=== PATIENT | male | born 1940 | race Caucasian/White ===

== ENCOUNTER → 2016-12-26 | Outpatient (CLI) | payer OTHER | LOC: LAB 09:51 | PROVIDERS: ATTEND Urology | DX: C61 Malignant neoplasm of prostate (principal) | CPT/HCPCS: 36415; 84153 ==

== ENCOUNTER 2017-11-19 13:54 | Inpatient (IN) ==
[~2017-11-19 13:54] MED LIST: BACITRACIN 50,000 UNIT VIAL IRRIG ONE; BUPivacaine Inj 0.5% PF (5mg/ml) 10ml vial ONE; LIDOCAINE W/ SODIUM BICARB 0.5 ML SYR SUBD ONE; Sodium Chloride 0.9% vial 20 ML ONE
[2017-11-19] MEDS: Lactated Ringers 1,000 ML PRIMARY IV SCH ×3 (14:33→20:03)
[2017-11-19] MEDS ORDERED: LIDOCAINE 2%/ EPI 1:200,000 - 20 ML VIAL ONE (14:55)
[2017-11-19] MEDS ORDERED: MEPIVACAINE HCL/PF 20 MG/1 ML ONE (14:55)
[2017-11-19] MEDS ORDERED: MIDAZOLAM 5 MG/1 ML ONE (14:55)
[2017-11-19] MEDS ORDERED: fentaNYL Inj 100 MCG/2 ML VIAL ONE ×2 (14:55→15:38)
[2017-11-19] MEDS ORDERED: DEXAMETHASONE PF 10 MG/1 ML VIAL ONE (14:58)
[2017-11-19] MEDS ORDERED: PROPOFOL 10 MG/1 ML (200 MG/20 ML) VIAL IV ONE (15:31)
[2017-11-19] MEDS ORDERED: Sodium Chloride 0.9% 100 ML IV ONE (15:38)
[2017-11-19] MEDS ORDERED: KETAMINE 100 MG/1 ML - 5 ML ONE (15:38)
[2017-11-19] MEDS ORDERED: ERTAPENEM 1 GM VIAL ONE (15:38)
[2017-11-19] MEDS ORDERED: LIDOCAINE MPF 2% - 5 ML (20 MG/1 ML) ONE (15:54)
[2017-11-19] MEDS ORDERED: ROCURONIUM 10 MG/1 ML - 5 ML VIAL IVP ONE (15:56)
[2017-11-19] MEDS ORDERED: ePHEDrine Inj 50 MG/ML AMP ONE (16:19)
[2017-11-19] MEDS ORDERED: Ertapenem Inj 1 GM in Sodium Chloride 0.9% 100 ML IV SCH (16:45)
--- NOTE | 2017-11-19 17:09 | CRNA.PROGR ---
Anesthesia Time - - Start date: 11/19/17 End date: 11/19/17 - Procedure/Recovery Time Anesthesia : Time In: 15:53 Anesthesia : Time Out: 17:05 Anesthesia : Total Time: 72 - Total Anesthesia Time Total Anesthesia Time (minutes): 72 - Other Weight: 99.79 kg Height: 5 ft 6 in Body Mass Index (BMI): 35.5 Physical Status: P3 Anesthesia Type: General Anesthesia : ET
--- NOTE | 2017-11-19 17:11 | ORTHO.OP ---
- - -: See Dictated Operative Report Procedure Codes - Upper Extremity Procedures Primary Wrist/Hand/Elbow Procedure Code: Other CPT Code(s) (cpt 80447)
[2017-11-19] MEDS ORDERED: ONDANSETRON 4 MG/2 ML VIAL IVP PRN (17:43)
[2017-11-19] MEDS ORDERED: HYDROcodone-APAP 7.5 MG-325 MG TABLET PO PRN (17:43)
[2017-11-19] MEDS ORDERED: HYDROmorphone 2 MG/1 ML IVP PRN (17:43)
--- NOTE | 2017-11-19 18:23 | PDOC ---
HPI - History of Present Illness Date of Service: 11/19/17 Time of Service: 18:22 Chief Complaint: Left elbow swelling History of Present Illness: Very pleasant 77-year-old male with hypertension, possible thyroid problems as he is on an [id number] thyroid product, who developed an olecranon bursitis earlier this year in September. He had it aspirated and then steroids placed and it around October 13 and had no further problems. Yesterday, he presented to the clinic with swelling and redness in his left elbow and was sent over to the orthopedic clinic for evaluation. He had aspiration and that was sent for Gram stain and gram-negative rods grew out. He had a washout of his olecranon A, along with a drain left in place. Gram stain initially now is coming back as rare gram-positive cocci. I was asked to see the patient regarding antibiotics. Prior to surgery we knew that a gram negative jordyn was on Gram stain. I advised Invanz and the dose was given around 5:00 today. This is in the afternoon. Reviewing the culture results to date, there is no growth. I also spoke with infectious disease, and they recommended consideration of narrowing antibiotics to cover staph or strep organisms if there is no growth on the gram-negative jordyn portion over the next 24 hours or so. The patient has not had any fevers, chills, nausea, vomiting, or other systemic infectious symptoms. He states he did not even have pain in the elbow. His is present at bedside and we discussed the patient's situation at length, including options for treatment that may include IV antibiotics for some portion of time. Past Medical History Medical History: 1. Hypertension. 2. Left olecranon bursitis. 3. History of atrial fibrillation. 4. Coronary artery disease status post CABG. 5. Prostate cancer status post prostatectomy. 6. Hypercholesterolemia Surgical History: Status post laser cataract surgery (Acute). Status post coronary artery bypass graft (Acute). History of esophagogastroduodenoscopy. History of eye surgery. Status post prostatectomy. Status post tonsillectomy. History of blepharoplasty Pertinent Family History: Father of a heart attack. Mother of a cerebral hemorrhage Past Social History: Quit smoking in the past. He is for 59 years. Has 3 children described as healthy. Drinks a beer a night. Tobacco Use: Former Smoker In the Past 12 Months, Have Used or Abuse Any of the Following Substance: None Alcohol Use: Occasionally Medication / Allergies Home Medications: Home Medications 3 Medication Instructions Recorded Confirmed Type Aspirin [Aspir-Low] 81 mg ORAL QD tab 09/18/10 11/19/17 History [place]-3 Fatty Acids/Fish Oil [Fish 1 ea PO QAM 09/18/10 11/19/17 History Oil Softgel] Simvastatin 40 mg PO QHS #90 tab 07/07/13 11/19/17 History Thyroid Otc 200 mg PO three times a week 07/07/13 11/19/17 Clinic Cyanocobalamin/Folic Acid [Vitamin 1 tab PO QD #30 tab 03/30/15 11/19/17 History L93-Vnomy Acid Tablet] ascorbate calcium 500 mg capsule 1,000 mg PO QDAY 03/31/17 11/19/17 History metoprolol tartrate 25 mg tablet 25 mg PO BID #180 tab 03/31/17 11/19/17 History Allergies/Adverse Reactions: Allergies 3 Allergy/AdvReac Type Severity Reaction Status Date / Time adhesive tape Allergy RASH Verified 11/19/17 17:58 Review of Systems - Respiratory Respiratory: REPORTS: Negative System Review - Cardiovascular Cardiovascular: REPORTS: Negative System Review - Gastrointestinal Gastrointestinal / Abdominal: REPORTS: Negative System Review - Genitourinary Genitourinary: REPORTS: Other (History of prostate cancer status post prostatectomy) - Musculoskeletal Musculoskeletal: REPORTS: See HPI - Neurological Neurologic: REPORTS: Negative System Review Exam - Vitals Vital Signs: Vital Signs Temperature 97.8 F Temperature Source Oral Pulse Rate [Pulse Oximeter] 79 Pulse Rate 80 Respiratory Rate 16 Blood Pressure [Right Thigh] 135/77 Blood Pressure 132/72 Pulse Ox 96 Oxygen Flow Rate 2 Oxygen Delivery Method Nasal Cannula Height 5 ft 6 in Weight 220 lb - General General Appearance: No Acute Distress, Cooperative - Head Head Exam: Normal Inspection, Normocephalic, Atraumatic - Eye Eye Exam: POSITIVE: No Scleral Icterus - ENT ENT Exam: POSITIVE: Mucous Membranes Moist - Neck Neck Exam: Normal Inspection, No Tenderness, No Lymphadenopathy, No Thyromegaly - Respiratory Respiratory Exam: POSITIVE: Clear to Auscultation - Bilaterally, Breathing Non Labored - Cardiovascular Cardiovascular Exam: POSITIVE: RRR, No Murmur, No Clicks, No Gallops, No Rubs, No JVD - GI/Abdominal GI/Abdominal Exam: POSITIVE: Normal Bowel Sounds, Non Tender, Non Distended, Soft - Rectal Rectal Exam: POSITIVE: Deferred - External Exam: POSITIVE: Deferred Exam: POSITIVE: Deferred - Extremities Extremities Exam: POSITIVE: No Clubbing Present, No Edema Present, No Cyanosis Present Additional Extremities Exam Details: On the left upper extremity, the elbow is dressed, dressing is clean, dry, intact and there is a drain in place. - Neurological Neurological Exam: POSITIVE: Alert, Oriented x 3, No Facial Droop, Speech Intact / Clear Additional Neurological Exam Details: I did not do formal muscle strength testing given the olecranon bursitis on the left side. - Central Line Examination Central Line Present on Admission: No Results - Labs Additional Lab Results: 10/05/11 11/18/17 11:00 09:31 WBC 6.00 RBC 4.55 L Hgb 14.7 RDW 12.1 Hct 44.2 MCV 97.1 H MCH 32.3 H MCHC 33.3 RDW Std Deviation 45.4 RDW Coeff of Kami 13.1 Plt Count 198 MPV 10.5 Immature Gran % (Auto) 0.2 Neut % (Auto) 63.4 Lymph % (Auto) 23.8 [place] % (Auto) 11.8 Eos % (Auto) 0.3 Baso % (Auto) 0.5 Immature Gran # (Auto) 0.01 Neut # (Auto) 3.80 Lymph # (Auto) 1.43 [place] # (Auto) 0.71 Eos # (Auto) 0.02 Baso # (Auto) 0.03 Assessment and Plan - Patient Problems (1) Olecranon bursitis, left elbow Current Visit: Yes Status: Acute Code(s): M70.22 - Olecranon bursitis, left elbow (2) History of prostate cancer Current Visit: Yes Status: Acute Code(s): Z85.46 - Personal history of malignant neoplasm of prostate (3) Hypercholesterolemia Current Visit: Yes Status: Acute Code(s): E78.00 - Pure hypercholesterolemia , unspecified (4) Coronary artery disease Current Visit: Yes Status: Acute Code(s): I25.10 - Atherosclerotic heart disease of [place] coronary artery without angina pectoris Qualifiers: Coronary Disease-Associated Artery/Lesion type: [place] artery [place] vs. transplanted heart: [place] heart Associated angina: without angina Qualified Code(s): I25.10 - Atherosclerotic heart disease of [place] coronary artery without angina pectoris - Assessment / Plan Additional Assessment/Plan Details: Invanz was given to the patient today. We will follow the culture results and if gram-negative jordyn comes out, may continue Invanz but if there is no growth of this gram-negative jordyn, will try to switch to staph and strep coverage and narrow coverage per infectious disease recommendations. We will go with [facility]. We would have until about 5:00 tomorrow to make a decision on antibiotic coverage if we are to change it. Check labs in a.m. I do not think the patient is systemically toxic or septic by any means, but I do think we need to make sure there is no bacteria in the bloodstream and I'll check blood cultures. It may be that we will need to consider a PICC line or IV access of some type and it would be nice to know if those blood cultures are negative at 48 hours. We'll arrange an infectious disease follow-up tomorrow for management of antibiotic course which will likely be 2-3 weeks. Surgical management and drain management as per Dr. David. Pain medications although at this point I will write and stop IV Dilaudid. Continue home medications although I will go ahead and hold off on the B12 and folic acid supplement. DVT prophylaxis. I spoke with the patient and his about the plan, and they agree at this point. Questions were answered. I think the patient was under the influence of anesthesia and still coming through his anesthesia so he did have some mild confusion at bedside which the patient's states is not normal for him so we will go through this all again tomorrow as well to make sure the patient understands fully the plan. The patient's agreed with the plan.
[2017-11-19] MEDS: Metoprolol TARTRATE Tab 25 MG TAB PO SCH (20:01)
[2017-11-19] MEDS ORDERED: diphenhydrAMINE 25 MG CAPSULE PO ONE (20:11)
[2017-11-19] MEDS ORDERED: ACETAMINOPHEN 325 MG TABLET PO ONE (20:11)
--- NOTE | 2017-11-19 20:20 | CRNA.PROCE ---
Nerve Block Documentation - - Safety Measures: Time Out Taken, Site Verified - - Type of Nerve Block Used: Left Axillary Block Position for Nerve Block: Supine Moniters Used During Block: EKG, SPO2, NIBP Oxygen Supplemented: Yes Sedation Used - Enter Amount in Comment Field [ANES.SEDAT]: Midazolam (mg): Yes (2 mg ), Fentanyl (mcg): Yes (50) Skin Prep Used: ChloroPrep (twice) Draped: No Technique: Nerve Stimulator Nerve Block Needle Used: [employer]ipper 50 mm Stimulation Hz: 1 Stimulation Staring mA: 1.6 Stimulation Ending mA: 0.48 Local Anesthetic - Enter Amt in Comment Field [ANES.LOCNB]: 2 % Xylocaine with Epinephrine 1:200,000 (mL): Yes (20 ml), 2 % Mepivacaine (mL): Yes (40 ml) Additives to Nerve Blocks: Dexamethasone (mg): Yes (10) - - PreOp Block : Time In: 15:03 PreOp Block : Time Out: 15:28 Anesthesia Time - Other Weight: 99.79 kg Height: 5 ft 6 in Body Mass Index (BMI): 35.5
--- NOTE | 2017-11-19 20:22 | CRNA.PROGR ---
Post Anesthesia Phase II - Post Anesthesia Phase II Patient Stable and Discharged To: Phase II Care Assumed By Surgeon: Del David MD Temperature: 97.8 F Pulse Rate: 80 Respiratory Rate: 16 Blood Pressure: 132/72 Pulse Ox: 96 Total Andres Score at Discharge: 9 Post Anesthesia Discharge Criteria Met: Yes
[2017-11-19] MEDS ORDERED: Simvastatin Tab 40 MG TAB PO SCH (21:00)
[2017-11-20] MEDS: Lactated Ringers 1,000 ML PRIMARY IV SCH (04:19)
[2017-11-20 05:06] LABS: BASOPHILS # (AUTO) 0 10*3/UL; BASOPHILS % (AUTO) 0 % (0-1); EOSINOPHILS # (AUTO) 0 10*3/UL; EOSINOPHILS % (AUTO) 0 % (0-8); Hemoglobin [HGB] 14.7 g/dL (14.0-18.0); LYMPHOCYTES # (AUTO) 1.14 10*3/uL; MEAN CORPUSCULAR HEMOGLOBIN 32.2 PG (27-31); MEAN CORPUSCULAR HGB CONC 33.4 g/dL (33-37); MEAN CORPUSCULAR VOLUME 96.3 FL (80-90); MEAN PLATELET VOLUME 10.5 FL (7.4-12.2); MONOCYTES # (AUTO) 0.24 10*3/UL (0.3-0.8); MONOCYTES % (AUTO) 4.2 % (5-15); NEUTROPHILS # (AUTO) 4.38 10*3/UL; NEUTROPHILS % (AUTO) 75.8 % (50-80); RED BLOOD COUNT 4.57 10^6/uL (4.70-6.10)
[2017-11-20 05:19] LABS: PLATELET MORPHOLOGY COMMENT NORMAL MORPHOLOGY (NORM); RBC MORPHOLOGY COMMENT NORMAL MORPHOLOGY (NORM); WBC MORPHOLOGY COMMENT NORMAL MORPHOLOGY (NORM)
[2017-11-20 05:59] LABS: BLOOD UREA NITROGEN 14 mg/dL (7-22); BUN/CREATININE RATIO 23.33 (6-20); SERUM ALBUMIN 4.1 g/dL (3.5-4.8)
[2017-11-20 07:20] LABS: Erythrocyte Sediment Rate 9 MM/HR (0-15)
[2017-11-20] MEDS ORDERED: ASCORBIC ACID Chewable 500 MG TABLET PO SCH (09:00)
[2017-11-20] MEDS ORDERED: FATTY ACIDS PO SCH (09:00)
[2017-11-20] MEDS ORDERED: ASCORBATE CALCIUM 1000 MG PO SCH (09:00)
[2017-11-20] MEDS ORDERED: FISH OIL PO SCH (09:00)
[2017-11-20] MEDS ORDERED: ASPIRIN EC 81 MG TABLET PO SCH (09:00)
[2017-11-20] MEDS ORDERED: OMEGA PO SCH (09:00)
[2017-11-20] MEDS ORDERED: CYANOCOBALAMIN PO SCH (09:00)
[2017-11-20] MEDS ORDERED: FOLIC ACID PO SCH (09:00)
[2017-11-20] MEDS: Metoprolol TARTRATE Tab 25 MG TAB PO SCH (09:06)
--- NOTE | 2017-11-20 11:21 | CRNA.PROGR ---
Anesthesia Note - Progress Notes Anesthesia Progress Note: Post OP Anesthesia Note Pt is siting up in in recliner at bedside. Pt denies any residual issues from the anesthetic. His pain is well under control. He is tolerating a regular diet. Has been up and ambulating. Current VS are stable. Vital Signs (Last 8 hours) Temp Pulse Resp BP Pulse Ox 11/20/17 06:55 98.4 F 71 18 137/88 95 11/20/17 04:36 93 11/20/17 04:35 98.4 F 77 20 137/84 93
--- NOTE | 2017-11-20 13:31 | PT.PROG ---
Progress Note Progress Note: S: Nurse notified of therapy. Pt. states that he is going home at 17:00 today after he gets his medications. Says he is feeling good. O: Pt. ascends and descends 1 flight of stairs independently with single point cane. Pt. cued to use railing with RUE x1. Demonstrated step over step gait pattern. Pt. was compliant with non-weight bearing precaution of LUE. Walked 450ft. independently with a single point cane. Pt. left in chair with chair alarm on, supplemental O2 on and call button in reach. A: Pt. is independent in with all transfers, ambulation and stairs. P: Discharge pt. to return home Wild Saldana, SPT Edyta Chino, PT
--- NOTE | 2017-11-20 14:26 | PTI REPORT ---
Thank you for the referral of Abram Nevarez. He was seen on 11/20/17 for an inpatient evaluation secondary to an elbow procedure and for gait training with a cane. SUBJECTIVE: The patient is a 77-year-old male with a recent elbow procedure following insidious inflammation of left elbow. Currently, the patient has a wound drain and is on 2 liters of oxygen. The patient reports a current pain level of 0.5/ 10 on the verbal analog scale (0=no pain, 10=worst pain). The patient has four stairs into home and bedroom. The bathroom is on the main floor. The patient currently works at a storage garage as needed. PAST MEDICAL HISTORY: Past medical history can be found in the patient's medical record. OBJECTIVE FINDINGS: Bed mobility: The patient is independent with bed mobility. Transfers: The patient is able to transfer from sit to stand independently with cane. The patient is independent with bathroom transfers with single point cane. The patient is impulsive and needed cues not to weight bear through left upper extremity x3. Ambulation: The patient is independent with ambulation with a single point cane. The patient completed the 10 Meter Walk Test in 4 seconds. Strength/Range of motion: Strength and range of motion were within functional limits. The patient is able to look over bilateral shoulders as he is moving without a loss of balance. ASSESSMENT: The patient is a LOW risk for falling. Problem List: Patient is non-compliant with precautions Short-Term Goals: To be met by discharge from inpatient: Patient will be able to perform 10 step ups and 10 step downs to be efficient with four steps to enter home. Long-Term Goals: To be met following discharge from inpatient: Patient will return to prior level of function safely. TREATMENT PLAN: Patient will be seen B.I.D during the week and one time per day over the weekend as an inpatient for stair training. INITIAL TREATMENT: Treatment today consisted of the initial evaluation activities only. Dictated by: LALITO Hernandez Supervised by: PAT Gunter
--- NOTE | 2017-11-20 14:41 | DCSUMMARY ---
Hospitalization Summary Admit Date: 11/19/2017 Discharge Date: 11/20/17 Primary Diagnosis:: left olecranon bursitis Hospital Course: This very pleasant 77-year-old male who had a left olecranon bursitis diagnosed in the clinic. He was admitted for a cleanout and washout of the left elbow and then antibiotic therapy. Initial Gram stain from aspiration in the clinic was gram-negative rods but no growth. Gram stain from surgery was gram- positive cocci, but still awaiting final results from culture. The patient did not have a lot of postoperative pain and it was very well controlled with Tylenol and Motrin alone. He has no systemic signs of infection, no fevers and no chills, and is tolerated Invanz therapy to this point. Our plan was to get him in to the infectious disease clinic which we were able to do his they are visiting [place] tomorrow, we were able to set him up for an appointment at 11:45 AM. In the meantime, we'll give him a second dose of Invanz tonight at 5 PM which should bridge him to his infectious disease appointment to determine course of antibiotics and whether or not he will continue IV versus by mouth. I explained the plan above to the patient and his and they understood implicitly and had no further questions regarding this plan. In addition to his elbow not hurting him to a great degree, patient denies any chest pain, shortness breath, nausea or vomiting. I spoke with orthopedics and they're fine with the patient going home and would like to see him Friday to manage the drain further. Assessment and Plan: 1. As per discharge assessments noted 2. Disposition: Patient is discharged home 3. Condition on discharge, stable and improved. 4. Diet: regular diet 5. Activities: No heavy lifting with left arm. Keep arm dressed. 6. Follow-Up: 1. Infectious disease tomorrow 2. Orthopedics on Friday 7. Medications at the Time of Discharge: Home Medications 3 Medication Instructions Recorded Confirmed Type Aspirin [Aspir-Low] 81 mg ORAL QD tab 09/18/10 11/19/17 History [place]-3 Fatty Acids/Fish Oil [Fish 1 ea PO QAM 09/18/10 11/19/17 History Oil Softgel] Simvastatin 40 mg PO QHS #90 tab 07/07/13 11/19/17 History Thyroid Otc 200 mg PO three times a week 07/07/13 11/19/17 Clinic Cyanocobalamin/Folic Acid [Vitamin 1 tab PO QD #30 tab 03/30/15 11/19/17 History F01-Egjxa Acid Tablet] ascorbate calcium 500 mg capsule 1,000 mg PO QDAY 03/31/17 11/19/17 History metoprolol tartrate 25 mg tablet 25 mg PO BID #180 tab 03/31/17 11/19/17 History Ertapenem Inj [INVanz Inj] 1 gm IV Q24H vial 11/20/17 Rx 8. Time, care, counseling and coordination of care for this discharge is greater than 30 minutes. Exam - Vitals Vital Signs: Vital Signs Temperature 97.3 F Temperature Source Temporal Artery Scan Pulse Rate [Pulse Oximeter] 67 Pulse Rate 80 Respiratory Rate 18 Blood Pressure [Right Thigh] 131/88 Blood Pressure 132/72 Pulse Ox 94 Oxygen Flow Rate 1 Oxygen Delivery Method Nasal Cannula Height 5 ft 6 in Weight 219 lb 3.2 oz - General General Appearance: No Acute Distress, Cooperative - Eye Eye Exam: POSITIVE: No Scleral Icterus - ENT ENT Exam: POSITIVE: Mucous Membranes Moist - Respiratory Respiratory Exam: POSITIVE: Clear to Auscultation - Bilaterally, Breathing Non Labored - Cardiovascular Cardiovascular Exam: POSITIVE: RRR, No Murmur, No Clicks, No Gallops, No Rubs, No JVD - GI/Abdominal GI/Abdominal Exam: POSITIVE: Normal Bowel Sounds, Non Tender, Non Distended, Soft - Extremities Extremities Exam: POSITIVE: No Clubbing Present, No Edema Present, No Cyanosis Present Additional Extremities Exam Details: Left arm dressed, dressing is clean, dry, intact minimal output and drain. - Neurological Neurological Exam: POSITIVE: Alert, Oriented x 3, No Facial Droop, Speech Intact / Clear Data Peritnent Studies: Laboratory Results 11/20/17 11/20/17 Range/Units 04:43 04:43 WBC 5.77 (4.8-10.8) 10^3/uL RBC 4.57 L (4.70-6.10) 10^6/uL Hgb 14.7 (14.0-18.0) g/dL Hct 44.0 (42.0-52.0) % MCV 96.3 H (80-90) FL MCH 32.2 H (27-31) PG MCHC 33.4 (33-37) g/dL RDW Std Deviation 44.9 (39-50) fL RDW Coeff of Kami 12.9 (11.5-14.5) % Plt Count 223 (140-350) 10*3/uL MPV 10.5 (7.4-12.2) FL Immature Gran % (Auto) 0.2 (0-5) % Neut % (Auto) 75.8 (50-80) % Lymph % (Auto) 19.8 (10-50) % [place] % (Auto) 4.2 L (5-15) % Eos % (Auto) 0 (0-8) % Baso % (Auto) 0 (0-1) % Immature Gran # (Auto) 0.01 10*3/UL Neut # (Auto) 4.38 10*3/UL Lymph # (Auto) 1.14 10*3/uL [place] # (Auto) 0.24 L (0.3-0.8) 10*3/UL Eos # (Auto) 0 10*3/UL Baso # (Auto) 0 10*3/UL WBC Morphology Comment Normal morphology (NORM) Plt Morphology Comment Normal morphology (NORM) RBC Morph Comment Normal morphology (NORM) ESR 9 (0-15) MM/HR Sodium 137 (135-145) meq/L Potassium 4.4 (3.8-5.2) meq/L Chloride 103 (98-112) meq/L Carbon Dioxide 17 L (23-33) meq/L Anion Gap 17 (5-20) BUN 14 (7-22) mg/dL Creatinine 0.6 L (0.70-1.50) mg/dL Estimated GFR [employer] Estimator BUN/Creatinine Ratio 23.33 H (6-20) Glucose 132 H (78-110) mg/dL Calculated Osmolality 286.0 (267-292) mOsm/kg Calcium 8.8 (8.7-10.7) mg/dL Total Bilirubin 0.5 (0.3-1.2) mg/dL AST 24 (21-57) IU/L ALT 37 (21-72) IU/L Alkaline Phosphatase 33 L (38-126) IU/L C-Reactive Protein 1.7 H (0.0-0.9) mg/dL Total Protein 6.6 (6.1-8.0) g/dL Albumin 4.1 (3.5-4.8) g/dL Globulin 2.6 (2.50-4.10) g/dL Albumin/Globulin Ratio 1.50 (1.3-2.0) mg/g Procedures: Culture result from aspiration was rare gram-negative jordyn with no growth at one day. Culture results from surgery with olecranon bursa washout was rare gram- positive cocci with no growth at one day. Patient Problems - Patient Problem List (1) Olecranon bursitis, left elbow Current Visit: Yes Status: Acute Code(s): M70.22 - Olecranon bursitis, left elbow Category: Medical (2) History of prostate cancer Current Visit: Yes Status: Acute Code(s): Z85.46 - Personal history of malignant neoplasm of prostate Category: Medical (3) Hypercholesterolemia Current Visit: Yes Status: Acute Code(s): E78.00 - Pure hypercholesterolemia , unspecified Category: Medical (4) Coronary artery disease Current Visit: Yes Status: Acute Code(s): I25.10 - Atherosclerotic heart disease of [place] coronary artery without angina pectoris Qualifiers: Coronary Disease-Associated Artery/Lesion type: [place] artery [place] vs. transplanted heart: [place] heart Associated angina: without angina Qualified Code(s): I25.10 - Atherosclerotic heart disease of [place] coronary artery without angina pectoris Category: Medical
--- NOTE | 2017-11-20 14:58 | ORTHO.PROG ---
Last Taken Vital Signs: Vital Signs - Last Taken Temperature 97.3 F 11/20/17 11:51 Pulse Rate 67 11/20/17 11:51 Respiratory Rate 18 11/20/17 11:51 Blood Pressure 131/88 11/20/17 11:51 Pulse Ox 94 11/20/17 11:51 Subjective: Patient notes no pain today and is doing well. Objective: The dressing on the left arm is clean and dry her drain has no active drainage in it. Patient's Gram stain showed gram-positive cocci were Z other day was gram-positive rods. Awaiting cultures. Laboratory Results 11/20/17 11/20/17 Range/Units 04:43 04:43 WBC 5.77 (4.8-10.8) 10^3/uL RBC 4.57 L (4.70-6.10) 10^6/uL Hgb 14.7 (14.0-18.0) g/dL Hct 44.0 (42.0-52.0) % MCV 96.3 H (80-90) FL MCH 32.2 H (27-31) PG MCHC 33.4 (33-37) g/dL RDW Std Deviation 44.9 (39-50) fL RDW Coeff of Kami 12.9 (11.5-14.5) % Plt Count 223 (140-350) 10*3/uL MPV 10.5 (7.4-12.2) FL Immature Gran % (Auto) 0.2 (0-5) % Neut % (Auto) 75.8 (50-80) % Lymph % (Auto) 19.8 (10-50) % [place] % (Auto) 4.2 L (5-15) % Eos % (Auto) 0 (0-8) % Baso % (Auto) 0 (0-1) % Immature Gran # (Auto) 0.01 10*3/UL Neut # (Auto) 4.38 10*3/UL Lymph # (Auto) 1.14 10*3/uL [place] # (Auto) 0.24 L (0.3-0.8) 10*3/UL Eos # (Auto) 0 10*3/UL Baso # (Auto) 0 10*3/UL WBC Morphology Comment Normal morphology (NORM) Plt Morphology Comment Normal morphology (NORM) RBC Morph Comment Normal morphology (NORM) ESR 9 (0-15) MM/HR Sodium 137 (135-145) meq/L Potassium 4.4 (3.8-5.2) meq/L Chloride 103 (98-112) meq/L Carbon Dioxide 17 L (23-33) meq/L Anion Gap 17 (5-20) BUN 14 (7-22) mg/dL Creatinine 0.6 L (0.70-1.50) mg/dL Estimated GFR Nurse Leader BUN/Creatinine Ratio 23.33 H (6-20) Glucose 132 H (78-110) mg/dL Calculated Osmolality 286.0 (267-292) mOsm/kg Calcium 8.8 (8.7-10.7) mg/dL Total Bilirubin 0.5 (0.3-1.2) mg/dL AST 24 (21-57) IU/L ALT 37 (21-72) IU/L Alkaline Phosphatase 33 L (38-126) IU/L C-Reactive Protein 1.7 H (0.0-0.9) mg/dL Total Protein 6.6 (6.1-8.0) g/dL Albumin 4.1 (3.5-4.8) g/dL Globulin 2.6 (2.50-4.10) g/dL Albumin/Globulin Ratio 1.50 (1.3-2.0) mg/g Vital Signs (24 hrs) Temp Pulse Pulse Resp BP BP Pulse Ox 11/20/17 11:51 97.3 F 67 18 131/88 94 11/20/17 06:55 98.4 F 71 18 137/88 95 11/20/17 04:36 93 11/20/17 04:35 98.4 F 77 20 137/84 93 11/20/17 00:02 98.1 F 73 20 158/74 96 11/19/17 20:44 97.8 F 72 14 144/77 94 11/19/17 20:22 97.8 F 80 16 132/72 96 11/19/17 19:15 98.6 F 85 16 134/81 93 11/19/17 18:11 97.8 F 79 16 135/77 96 11/19/17 17:57 97 F 80 16 128/82 97 11/19/17 17:45 98.7 F 77 16 133/71 97 11/19/17 17:42 80 18 132/72 95 11/19/17 17:36 79 13 129/74 94 11/19/17 17:31 83 15 125/70 94 11/19/17 17:25 84 14 126/73 95 11/19/17 17:20 80 12 124/68 95 11/19/17 17:15 82 15 117/68 94 11/19/17 17:10 78 16 115/62 92 11/19/17 17:05 77 10 L 118/62 91 11/19/17 17:00 97.8 F 79 17 121/55 94 Assessment: Left olecranon bursa infection status post I and D with drain in place and on IV antibiotics doing well Plan: Patient will continue with the IV antibiotics and infectious disease to give us recommendation as to length the treatment and medication to use. He will continue with the drain in place if he goes home today then I would like to see him back in about 3 days to remove the drain sooner for any problems. Limit use of the arm keeping the sling.
[2017-11-20 15:54] VITALS: BP 163/62; RESP 20; TEMP 97.1; O2SAT 92
[2017-11-20] MEDS ORDERED: Ertapenem Inj 1 GM in Sodium Chloride 0.9% 100 ML IV SCH (16:45)
[2017-11-21] MEDS ORDERED: THYROID OTC PO SCH (08:00)
== END 2017-11-20 17:37 | disposition home or self-care (01) | DRG 508 ==
LOC: OPS 13:54 → EDSTATUS 16:00 → MED/SURG 17:40
PROVIDERS: ADMIT Orthopaedic Surgery; ATTEND Orthopaedic Surgery